=== PATIENT | female | born 1980 | race Caucasian/White ===

== ENCOUNTER 2020-07-14 10:20 | Outpatient (CLI) | payer BC ==
[2020-07-14 11:33] LABS: Hemoglobin 13.1 g/dL (12.0-15.5); Mean Corpuscular HGB CONC 32.6 g/dL (32.0-36.0); Mean Corpuscular Hemoglobin 30.5 pg (27.0-33.0); Mean Corpuscular Volume 93.5 fl (81.6-98.3); Mean Platelet Volume 9.6 fl (7.4-10.4); Platelet Count 376 10x3/uL (150-450); RBC Distribution Width 12.2 % (11.5-14.5); White Blood Cell (WBC) Count 6.1 10x3/uL (3.5-10.5)
[2020-07-14 11:34] LABS: BHCG - Serum Negative (NEGATIVE); Pregs Control Background? CLEAR/WHITE (CLR/WHITE); Pregs Control Bar Appear? YES (CONTROL BAR)
[2020-07-14 12:46] LABS: Bilirubin Neg (Negative); Blood, Urine Negative (Negative); Glucose, Urine (Dipstick) Normal (Negative); Ketone, Urine Negative (Negative); Leukocyte 25 (Negative); Nitrite Negative (Negative); Protein, Urine (Dipstick) Negative (Neg-Trace); Specific Gravity, Urine 1.005 (1.002-1.036); Urobilinogen Normal mg/dL (Less than 2)
[2020-07-14 12:49] LABS: Clarity Clear (Clear)
[2020-07-14 13:10] LABS: Bacteria/HPF Rare-Few HPF (None Seen); RBC/HPF 0-3 HPF (0-3); Squamous Epithelial 0-3 HPF (0-3); WBC/HPF 0-3 HPF (0-3)
[2020-07-14 17:49] LABS: SARS-CoV-2 PCR by NAA Not Detected (NotDetected)
== END 2020-07-14 10:21 | disposition home or self-care (01) ==
LOC: CSHLAB 10:20
PROVIDERS: ATTEND Obstetrics & Gynecology
DX: Z01.812 Encounter for preprocedural laboratory examination (principal); Z20.822 Contact with and (suspected) exposure to COVID-19; N85.2 Hypertrophy of uterus; N80.0 Endometriosis of uterus; R10.2 Pelvic and perineal pain
CPT/HCPCS: 81001; 84703; 85027; 87635; U0003; U0005

== ENCOUNTER 2020-07-18 05:48 | Day surgery (SDC) | payer BC ==
[2020-07-14 14:03] VITALS: BMI 21.7
[2020-07-18] MEDS ORDERED: Lidocaine 1% MPF 2 ML VIAL ONE (06:15)
[2020-07-18] MEDS ORDERED: Bupivacaine PF 0.5% 30 ML VIAL ONE (06:28)
[2020-07-18] MEDS ORDERED: EPINEPHrine 1 MG/ML AMP ONE (06:28)
[2020-07-18] MEDS ORDERED: PROPOFOL 20 ML ONE (06:37)
[2020-07-18] MEDS ORDERED: Fentanyl 100 MCG/2 ML VIAL ONE ×4 (06:37→10:42)
[2020-07-18] MEDS ORDERED: Lidocaine 2% PF 5 ML VIAL ONE (06:38)
[2020-07-18] MEDS ORDERED: Rocuronium Bromide 10 MG/ML (10ML VIAL) ONE (06:38)
[2020-07-18] MEDS ORDERED: Dexamethasone 20 MG/5 ML VIAL ONE (06:39)
[2020-07-18] MEDS ORDERED: Midazolam HCl 2 mg/2 ml Vial ONE (06:45)
[2020-07-18] MEDS ORDERED: ePHEDrine 50 MG/ML VIAL ONE (07:25)
[2020-07-18] MEDS ORDERED: Ondansetron PF 4 MG/2 ML Vial ONE ×2 (08:29→12:34)
[2020-07-18] MEDS ORDERED: Ketorolac Tromethamine 30 MG/ML VIAL ONE (09:39)
[2020-07-18] MEDS ORDERED: HYDROcodone/Acetaminophen 7.5/325 mg Tablet ONE (12:45)
== END 2020-07-18 16:10 | disposition home or self-care (01) ==
LOC: CSHSDC 05:48
PROVIDERS: ATTEND Obstetrics & Gynecology
PROC: 0UT94ZZ Resection of Uterus, Percutaneous Endoscopic Approach (ICD-10-PCS; principal; 2020-07-18)
PROC: 0U5F4ZZ Destruction of Cul-de-sac, Percutaneous Endoscopic Approach (ICD-10-PCS; principal; 2020-07-18)
PROC: 0U574ZZ Destruction of Bilateral Fallopian Tubes, Percutaneous Endoscopic Approach (ICD-10-PCS; principal; 2020-07-18)
PROC: 0UT74ZZ Resection of Bilateral Fallopian Tubes, Percutaneous Endoscopic Approach (ICD-10-PCS; principal; 2020-07-18)
DX: N80.0 Endometriosis of uterus (principal); N72 Inflammatory disease of cervix uteri; N87.9 Dysplasia of cervix uteri, unspecified; D25.9 Leiomyoma of uterus, unspecified; N80.2 Endometriosis of fallopian tube; N80.3 Endometriosis of pelvic peritoneum; N73.6 Female pelvic peritoneal adhesions (postinfective)
CPT/HCPCS: 88307; J0171; J0690; J1100; J1885; J2001; J2250; J2405; J2704; J3010; J3490; S0020

== ENCOUNTER 2021-06-01 14:17 | Outpatient (CLI) | payer BC | END 2021-06-01 14:18 | disposition home or self-care (01) | LOC: CSHMAMMO 14:17 | PROVIDERS: ATTEND Obstetrics & Gynecology | DX: Z12.31 Encounter for screening mammogram for malignant neoplasm of breast (principal) | CPT/HCPCS: 77063; 77067 ==